=== PATIENT | male | born 1990 | race Hispanic/Latino ===

== ENCOUNTER 2018-06-30 07:00 | Emergency (ER) | payer OTHER ==
[2018-06-30] MEDS ORDERED: FAMOTIDINE 20MG TAB 20 MG TAB ONE (07:54)
[2018-06-30] MEDS ORDERED: PREDNISONE 20 MG TABLET ONE (07:55)
[2018-06-30] MEDS ORDERED: DIPHENHYDRAMINE HCL 25 MG CAPSULE ONE (07:55)
== END 2018-06-30 08:28 | disposition home or self-care (01) ==
LOC: EDH 07:00
DX: S90.861A Insect bite (nonvenomous), right foot, initial encounter (principal); B35.3 Tinea pedis; Z72.0 Tobacco use; W57.XXXA Bitten or stung by nonvenomous insect and other nonvenomous arthropods, initial encounter; Y93.89 Activity, other specified; Y92.89 Other specified places as the place of occurrence of the external cause; Y99.8 Other external cause status
CPT/HCPCS: 99284; Q0163

== ENCOUNTER 2021-02-27 05:59 | Emergency (ER) | payer OTHER ==
[~2021-02-27] VITALS: Ht 175.3 cm; Wt 122.5 kg
[2021-02-27] MEDS ORDERED: KETOROLAC 30MG VIAL (30MG/ML) IV SCH (06:15)
[2021-02-27] MEDS ORDERED: LIDOCAINE HCL-MPF 2% 5ML VIAL IM SCH (06:15)
[2021-02-27 06:32] VITALS: BP 107/84
[2021-02-27] MEDS ORDERED: LIDOCAINE HCL 1% 20 ML VIAL INJ SCH (06:45)
[2021-02-27 06:56] LABS: BASOPHILS % (AUTO) 0.4 % (0.0-5.0); EOSINOPHILS % (AUTO) 1.2 % (0.0-8.0); HEMATOCRIT 43.4 % (42-54); LYMPHOCYTES % (AUTO) 16.1 % (21.0-51.0); MEAN CORPUSCULAR HEMOGLOBIN 28.5 pg (27.0-33.0); MEAN CORPUSCULAR HGB CONC 32.9 g/dL (32.0-36.0); MEAN CORPUSCULAR VOLUME 86.6 fL (79-99); MONOCYTES % (AUTO) 5.4 % (3.0-13.0); PLATELET COUNT (AUTO) 239 K/uL (130-400); RED BLOOD CELL COUNT(AUTO) 5.01 MIL/uL (4.50-6.20)
[2021-02-27 08:32] VITALS: BP 119/70
[2021-02-27] MEDS ORDERED: ONDANSETRON HCL 4 MG/2 ML VIAL IVP SCH (12:00)
[2021-02-27] MEDS ORDERED: MORPHINE 4 MG SYG (4MG/1ML) IV SCH (12:00)
[2021-02-27 12:19] VITALS: BP 122/82
[2021-02-27 12:32] LABS: ALBUMIN 3.2 g/dL (3.5-5.0); BILIRUBIN,TOTAL 0.3 mg/dL (0.2-1.0); CREATININE 0.8 mg/dL (0.5-1.5); POTASSIUM 4.2 mmol/L (3.5-5.1); TOTAL PROTEIN, SERUM 6.3 g/dL (6.0-8.3)
[2021-02-27] MEDS ORDERED: IOHEXOL 350 MG/ML 100ML INFUS..BTL IV ONE (12:37)
[2021-02-27] MEDS ORDERED: NAPR-1180 PO (13:37)
[2021-02-27 14:55] VITALS: BP 121/79
== END 2021-02-27 14:57 | disposition home or self-care (01) ==
LOC: EDH 06:10
DX: S62.616A Displaced fracture of proximal phalanx of right little finger, initial encounter for closed fracture (principal); S32.019A Unspecified fracture of first lumbar vertebra, initial encounter for closed fracture; S20.211A Contusion of right front wall of thorax, initial encounter; W18.39XA Other fall on same level, initial encounter; Y93.89 Activity, other specified; Y92.89 Other specified places as the place of occurrence of the external cause; Y99.8 Other external cause status
CPT/HCPCS: 26742; 36415; 71260; 73130 ×2; 74177; 80053; 85025; 96374; 96375; 99285; J1885; J2270; J2405; Q9967; J3490